=== PATIENT | female | born 1970 | race Caucasian/White ===

== ENCOUNTER 2017-02-08 09:28 | Emergency (ER) | payer BC ==
[2017-02-08 10:24] VITALS: BP 127/79
--- NOTE | 2017-02-08 10:34 | UC ---
I, Oh,Soohyun, scribed for MohiniKiana plummer DO on 02/08/17 at 1005 . Cardiac HPI - HPI Summary HPI Summary: This 46 y/o female presents to [facility] for persistent CP since 1.5 weeks ago. CP is described as sharp and located in right "lung". Pt reports recent "chest cold " and initially dismissed CP. She decided to visit [facility] today when her CP became persistent. It is associated with SOB. She also reports fever a week ago , chest congestion, productive cough with brown sputum production, general myalgia, CHACON, and dizziness. Family member present at bedside reports syncope and lightheaded dizziness, where pt appeared to have slumped and become unresponsive. Negative rash or n/v/d. 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 Pt denies currently being on blood thinner. Per pt, she has defect that "my veins go kalyani-cross". She is current light everyday smoker. - History of Current Complaint Chief Complaint: UCRespiratory Stated Complaint: CHEST PAIN CONGESTION Time Seen by Provider: 02/08/17 09:52 Hx Obtained From: Patient, Medical Records Onset/Duration: Sudden Onset, Lasting Weeks - 1.5 week, Still Present Timing: Constant Initial Severity: Mild Current Severity: Mild Chest Pain Location: Right Anterior, Right Lateral Character: Sharp/Stabbing Aggravating: Nothing Alleviating: Nothing Associated Signs & Symptoms: Positive: Chest Pain, Headaches, Dizziness, SOB, Syncope, Cough - productive with brown sputum. Negative: Numbness - Allergy/Home Medications Allergies/Adverse Reactions: Allergies Allergy/AdvReac Type Severity Reaction Status Date / Time Sulfa Drugs Allergy Intermediate Hives Verified 02/08/17 09:51 Home Medications: Home Medications NK [No Home Medications Reported] 02/08/17 [History Confirmed 02/08/17] PMH/Surg Hx/FS Hx/Imm Hx - Additional Past Medical History Additional PMH: h/o PE with rupture and RA Endocrine History Of: Denies: Diabetes, Thyroid Disease Cardiovascular History Of: Denies: Cardiac Disorders, Hypertension, Pacemaker/ICD Respiratory History Of: Denies: COPD, Asthma GI/ History Of: Denies: Ulcer - Surgical History Surgical History: Yes Surgery Procedure, Year, and Place: 2009 HYSTERECTOMY;LUNG -1987 (BLOOD CLOTS RUPTURED IN Rt SIDE) - Family History Known Family History: Negative: Hypertension, Diabetes - Social History Lives: With Family Alcohol Use: None Substance Use Type: None Smoking Status (MU): Light Every Day Tobacco Smoker Amount Used/How Often: 1/2 ppd Cessation Counseling: Patient Advised to Stop Review of Systems Constitutional: Fever - currently resolved Skin: Negative Eyes: Negative ENT: Negative Respiratory: Shortness Of Breath, Cough - productive with brown sputum productino Cardiovascular: Negative, Chest Pain Gastrointestinal: Negative Genitourinary: Negative Motor: Negative Neurovascular: Negative Musculoskeletal: Negative Neurological: Headache, Other - syncope per family member present at bedside. Positive lightheaded dizziness. Psychological: Negative All Other Systems Reviewed And Are Negative: Yes Physical Exam Triage Information Reviewed: Yes Appearance: Well-Appearing, Well-Nourished, Pain Distress - mild Vital Signs: Initial Vital Signs Temp 98.7 F 02/08/17 09:36 Pulse 80 02/08/17 09:36 Resp 20 02/08/17 09:36 BP 127/79 02/08/17 09:36 Pulse Ox 98 02/08/17 09:36 Vital Signs Reviewed: Yes Eye Exam: Normal Eyes: Positive: Conjunctiva Clear. Negative: Discharge ENT: Positive: Hearing grossly normal. Negative: Muffled/hoarse voice Neck exam: Normal Neck: Positive: Supple Respiratory: Positive: Lungs clear, Normal breath sounds, No respiratory distress, No accessory muscle use Cardiovascular: Positive: RRR, No Murmur, Other: - ttp at 8th-9th rib on rt Musculoskeletal: Positive: Other: - ttp at 8th-9th rib on rt Neurological: Positive: Alert, Muscle Tone Normal Psychological: Positive: Normal Response To Family, Age Appropriate Behavior Skin Exam: Normal, Other - warm, dry, color nml Diagnostics - EKG Cardiac Rate: NL - NSR with 77 bpm. Early repol in V3. - Differential Diagnoses - Chest Pain Differential Diagnosis/HQI/PQRI: Acute PR, ACS, Chest Wall, Lower Respiratory Infection, Pulmonary Edema, Other: - uri, rib dysfunction, pleuricy - Clinical Impression Provider Diagnoses: dyspnea, dizziness - Physician Notifications Discussed Patient Care With: Lesly Thrasher (ERP at [facility]) at 1014 AM Time Discussed With Above Provider: 10:14 Instructed by Provider To: Transfer - [facility] Discharge - Discharge Plan Condition: Stable Disposition: TRANS HIGHER LVL OF CARE FAC The documentation as recorded by the Jeremiah cisneros Soohyun accurately reflects the service I personally performed and the decisions made by , Kiana Rajan DO.
== END 2017-02-08 10:45 | disposition short-term general hospital (02) ==
LOC: UCEAST 09:28
DX: R06.00 Dyspnea, unspecified (principal); R42 Dizziness and giddiness; F17.210 Nicotine dependence, cigarettes, uncomplicated; Z88.2 Allergy status to sulfonamides; Z86.711 Personal history of pulmonary embolism
CPT/HCPCS: 93005; 99213; G0463

== ENCOUNTER 2017-02-08 11:13 | Emergency (ER) | payer BC ==
[2017-02-08] MEDS ORDERED: NS 0.9% 1000 ML* 1,000 ML IV ONE (12:38)
[2017-02-08 13:15] LABS: Hematocrit 42 % (35-47); Mean Corpuscular HGB Conc 33 g/dl (31-36); Mean Corpuscular Hemoglobin 33 pg (27-31); Mean Corpuscular Volume 99 fL (80-97); Mean Platelet Volume 8 um3 (7.4-10.4); Red Blood Count 4.27 10^6/ul (4.0-5.4); Red Cell Distribution Width 13 % (10.5-15); White Blood Count 8.5 10^3/ul (3.5-10.8)
[2017-02-08 13:37] LABS: ALT 8 U/L (7-52); AST 13 U/L (13-39); Albumin 4.2 g/dL (3.2-5.2); Alkaline Phosphatase 68 U/L (34-104); Anion Gap 6 mmol/L (2-11); BUN/Creatinine Ratio 16.7 (8-20); Blood Urea Nitrogen 13 mg/dL (6-24); C Reactive Protein < 1.00 mg/L (< 5.00); CO2 Carbon Dioxide 25 mmol/L (22-32); Calcium 9.6 mg/dL (8.6-10.3); Chloride 109 mmol/L (101-111); EGFR African American 101.4 (>60); EGFR Non-African American 78.8 (>60); Globulin 2.3 g/dL (2-4); Glucose 88 mg/dL (70-100); Lipase 32 U/L (11.0-82.0); Magnesium 2.2 mg/dL (1.9-2.7); Potassium 4.1 mmol/L (3.5-5.0); Sodium 140 mmol/L (133-145); Total Protein 6.5 g/dL (6.4-8.9)
[2017-02-08] MEDS ORDERED: Iohexol 350* (CONTRAST) 500 ML MDV IV ONE (13:51)
[2017-02-08 13:52] LABS: Urine Bilirubin Negative (Negative); Urine Glucose Negative (Negative); Urine Nitrite Negative (Negative)
--- NOTE | 2017-02-08 13:54 | RAD ---
INDICATION: ] Right upper quadrant pain COMPARISON: None TECHNIQUE: Longitudinal and transverse scans of the right upper quadrant were obtained. Doppler interrogation of the hepatic and portal venous system was performed. FINDINGS: Liver: The liver is normal in size and echogenicity. There is a 0.8 cm, not shadowing, right hepatic lobe echogenic focus which is likely an incidental hemangioma. The liver measures 13.4 cm in cephalocaudal dimension. Vessels: There is normal hepatic and portal venous flow. Bile ducts: There is no evidence of intrahepatic or extrahepatic ductal dilatation. The common duct measures 0.5 cm. Gallbladder: The sonographic appearance of the gallbladder is normal. There is no evidence of cholelithiasis, thickening of the gallbladder wall, or pericholecystic fluid. Pancreas: The visualized pancreas appears normal Right kidney: The right kidney is normal in size and echogenicity. There are no masses or calculi. There is no evidence of hydronephrosis. The right kidney measures 9.9 x 3.9 x 6.7 cm. IVC and aorta: The aorta and superior vena cava appear normal. Fluid: There is no ascites. Other: None. IMPRESSION: NORMAL GALLBLADDER. SUSPECT SUBCENTIMETER RIGHT HEPATIC LOBE HEMANGIOMA REPRESENTING AN INCIDENTAL FINDING.
--- NOTE | 2017-02-08 15:59 | RAD ---
INDICATION: RIGHT upper quadrant pain. Pleuritic chest pain. History of PE. Worsening pain for 1.5 weeks. Post hysterectomy. Previous lung surgery. COMPARISON: November 19, 2005 chest radiograph and February 08, 2017 RIGHT upper quadrant ultrasound. TECHNIQUE: Multidetector CT images were obtained from the lung apices to the ischial tuberosities with 100 mL Omnipaque 350 IV contrast. Oral contrast administered. CT pulmonary angiogram protocol. Multiplanar reformation including maximum intensity projection images of the thorax. CHEST REPORT: Postsurgical change of RIGHT upper lobectomy. Compensatory hyperexpansion of the RIGHT lower lobe. Minimal RIGHT upper lung zone predominant linear pleural-parenchymal scarring. No suspicious focal pulmonary lesions or alveolar consolidation. Negative for pleural effusions or pneumothorax. Upper normal bilateral hilar lymph nodes. Negative for lymphadenopathy. Negative for cardiomegaly or pericardial effusion. Normal diameter thoracic aorta. No filling defects are identified from the main to the subsegmental pulmonary arteries to indicate presence of a pulmonary embolism. Postsurgical defect at the RIGHT sixth rib posteriorly. No suspicious thoracic osseous lesions. CHEST IMPRESSION: No evidence for pulmonary embolism or other acute intrathoracic process. ABDOMEN PELVIS REPORT: Subtle 5 mm hypodensity noted at the central RIGHT hepatic lobe reference axial image 16 and coronal image 37 which likely corresponds with the hypoechoic sonographic lesion most consistent with a benign hemangioma. No additional abnormality of the liver. No CT abnormality of the gallbladder with normal variant fold at the fundus. Unremarkable pancreas. A few subcapsular splenic cysts are noted with dominant 1.2 cm cyst at the anterolateral margin. Negative for splenomegaly. Negative for CT abnormality of the upper GI, small bowel, infra cecal appendix anterior to the iliopsoas muscle, or colon. Negative for ascites, free air, hernias. 1.9 x 1.3 cm RIGHT adrenal nodule and probable 0.8 cm LEFT adrenal nodule are nonspecific based on density measurement. Unremarkable kidneys with symmetric nephrograms and pyelograms. Unremarkable ureters and urinary bladder. Post hysterectomy. No suspicious adnexal region lesions. Negative for lymphadenopathy. Mild atherosclerotic plaque of normal diameter abdominal aorta. Physiologic distention of the IVC. Sharply demarcated 0.7 cm maximum dimension subcortical osseous lesion at the RIGHT iliac bone posteriorly is most suspicious for a bone island. Negative for suspicious osseous lesions. ABDOMEN PELVIS IMPRESSION: 1. 0.5 cm hypodense lesion at the central RIGHT hepatic lobe is low suspicion based on small size and corresponding hypoechoic lesion on ultrasound most consistent with a benign hemangioma. 2. Normal appendix documented. 3. Small RIGHT larger than LEFT nonspecific adrenal nodules. Follow-up noncontrast CT or MRI adrenal mass protocol suggested for further characterization. 4. Post hysterectomy. 5. Mild atherosclerotic plaque. Negative for aneurysm of the abdominal aorta.
[2017-02-08 17:05] VITALS: BP 140/84
--- NOTE | 2017-02-08 17:45 | ED ---
Brendan Mitchell Adam, scribed for Susie Dunn MD on 02/08/17 at 1219 . HPI Chest Pain - HPI Summary HPI Summary: Pt is a 46 year old female presenting with CP. She describes it as severe sharp pain in her right side that feels "like a knife." It started 1.5 weeks ago and has been intermittent but growing worse. Movement aggravates the pain. The pain is a 6/10 now but when she sits up it is a 9/10. She has been taking ibuprofen for the pain. Pt denies any flank pain or pain with urination. PMHx of PE (not currently on blood-thinners) and RA (not on medication). Positive tobacco use. No FMHx of HTN, DM, or cardiac disease. - History of Current Complaint Chief Complaint: EDChestPainROMI Time Seen by Provider: 02/08/17 12:12 Hx Obtained From: Patient Onset/Duration: Started Weeks Ago, Atraumatic, Still Present Timing: Intermittent Initial Severity: Moderate Current Severity: Mild Pain Intensity: 6 Pain Scale Used: 0-10 Numeric Chest Pain Location: Discrete at: - Right side Chest Pain Radiates: Yes Chest Pain Radiates To:: Other - RUQ Character: Sharp/Stabbing - "Like a knife" Aggravating Factor(s): Movement Alleviating Factor(s): OTC Meds - Ibuprofen Associated Signs and Symptoms: Positive: Negative - Allergy/Home Medications Allergies/Adverse Reactions: Allergies Allergy/AdvReac Type Severity Reaction Status Date / Time Sulfa Drugs Allergy Intermediate Hives Verified 02/08/17 09:51 PMH/Surg Hx/FS Hx/Imm Hx Endocrine/Hematology History: Denies: Hx Diabetes, Hx Thyroid Disease Cardiovascular History: Denies: Hx Hypertension, Hx Pacemaker/ICD Respiratory History: Denies: Hx Asthma, Hx Chronic Obstructive Pulmonary Disease (COPD) GI History: Denies: Hx Ulcer Sensory History: Denies: Hx Hearing Aid Psychiatric History: Denies: Hx Panic Disorder - Surgical History Surgery Procedure, Year, and Place: 2008 HYSTERECTOMY;LUNG -1987 (BLOOD CLOTS RUPTURED IN Rt SIDE) Infectious Disease History: No Infectious Disease History: Denies: Hx Hepatitis, Hx Human Immunodeficiency Virus (HIV), History Other Infectious Disease, Traveled Outside the [place] in Last 30 Days - Family History Known Family History: Negative: Cardiac Disease, Hypertension, Diabetes - Social History Occupation: Employed Full-time Lives: With Family - Alcohol Use: None Hx Substance Use: No Substance Use Type: Reports: None Hx Tobacco Use: Yes Smoking Status (MU): Light Every Day Tobacco Smoker Amount Used/How Often: 1/2 ppd Review of Systems Negative: Fever Positive: Chest Pain - Right side Positive: Abdominal Pain - RUQ Negative: flank pain, pain All Other Systems Reviewed And Are Negative: Yes Physical Exam Triage Information Reviewed: Yes Vital Signs On Initial Exam: Initial Vitals Temp Pulse Resp BP Pulse Ox 98.2 F 86 18 114/75 98 02/08/17 11:30 02/08/17 11:30 02/08/17 11:30 02/08/17 11:30 02/08/17 11:30 Vital Signs Reviewed: Yes Appearance: Positive: Well-Appearing, No Pain Distress Skin: Positive: Warm, Skin Color Reflects Adequate Perfusion, Dry Eyes: Positive: EOMI, JOSIAH ENT: Positive: Pharynx normal, TMs normal Neck: Positive: Supple, Nontender Respiratory/Lung Sounds: Positive: Clear to Auscultation, Breath Sounds Present. Negative: Rales, Rhonchi, Wheezes Cardiovascular: Positive: RRR. Negative: Murmur, Rub Abdomen Description: Positive: Nontender, Soft. Negative: Distended, Guarding Bowel Sounds: Positive: Present Musculoskeletal: Positive: Strength/ROM Intact. Negative: Edema Left, Edema Right Neurological: Positive: Sensory/Motor Intact, Alert, Oriented to Person Place, Time, CN Intact II-III Psychiatric: Positive: Affect/Mood Appropriate - [place] Coma Scale Coma Scale Total: 15 Diagnostics - Vital Signs Vital Signs Temp Pulse Resp BP Pulse Ox 02/08/17 11:57 76 02/08/17 11:30 98.2 F 86 18 114/75 98 - Laboratory Lab Results: Lab Results 02/08/17 02/08/17 02/08/17 Range/Units 13:01 13:01 13:01 WBC 8.5 (3.5-10.8) 10^3/ul RBC 4.27 (4.0-5.4) 10^6/ul Hgb 14.0 (12.0-16.0) g/dl Hct 42 (35-47) % MCV 99 H (80-97) fL MCH 33 H (27-31) pg MCHC 33 (31-36) g/dl RDW 13 (10.5-15) % Plt Count 217 (150-450) 10^3/ul MPV 8 (7.4-10.4) um3 Neut % (Auto) 59.0 (38-83) % Lymph % (Auto) 33.5 (25-47) % [place] % (Auto) 5.5 (1-9) % Eos % (Auto) 1.2 (0-6) % Baso % (Auto) 0.8 (0-2) % Absolute Neuts (auto) 5.0 (1.5-7.7) 10^3/ul Absolute Lymphs (auto) 2.8 (1.0-4.8) 10^3/ul Absolute Monos (auto) 0.5 (0-0.8) 10^3/ul Absolute Eos (auto) 0.1 (0-0.6) 10^3/ul Absolute Basos (auto) 0.1 (0-0.2) 10^3/ul Absolute Nucleated RBC 0.01 10^3/ul Nucleated RBC % 0.1 Sodium 140 (133-145) mmol/L Potassium 4.1 (3.5-5.0) mmol/L Chloride 109 (101-111) mmol/L Carbon Dioxide 25 (22-32) mmol/L Anion Gap 6 (2-11) mmol/L BUN 13 (6-24) mg/dL Creatinine 0.78 (0.51-0.95) mg/dL Est GFR ( Amer) 101.4 (>60) Est GFR (Non-Af Amer) 78.8 (>60) BUN/Creatinine Ratio 16.7 (8-20) Glucose 88 (70-100) mg/dL Lactic Acid 0.7 (0.5-2.0) mmol/L Calcium 9.6 (8.6-10.3) mg/dL Magnesium 2.2 (1.9-2.7) mg/dL Total Bilirubin 0.50 (0.2-1.0) mg/dL AST 13 (13-39) U/L ALT 8 (7-52) U/L Alkaline Phosphatase 68 (34-104) U/L C-Reactive Protein < 1.00 (< 5.00) mg/L Total Protein 6.5 (6.4-8.9) g/dL Albumin 4.2 (3.2-5.2) g/dL Globulin 2.3 (2-4) g/dL Albumin/Globulin Ratio 1.8 (1-3) Lipase 32 (11.0-82.0) U/L Beta HCG, Quant 3.99 mIU/mL Urine Color Urine Appearance Urine pH (5-9) Ur Specific [place] (1.010-1.030) Urine Protein (Negative) Urine Ketones (Negative) Urine Blood (Negative) Urine Nitrate (Negative) Urine Bilirubin (Negative) Urine Urobilinogen (Negative) Ur Leukocyte Esterase (Negative) Urine Glucose (Negative) 02/08/17 Range/Units 13:35 WBC (3.5-10.8) 10^3/ul RBC (4.0-5.4) 10^6/ul Hgb (12.0-16.0) g/dl Hct (35-47) % MCV (80-97) fL MCH (27-31) pg MCHC (31-36) g/dl RDW (10.5-15) % Plt Count (150-450) 10^3/ul MPV (7.4-10.4) um3 Neut % (Auto) (38-83) % Lymph % (Auto) (25-47) % Canadian % (Auto) (1-9) % Eos % (Auto) (0-6) % Baso % (Auto) (0-2) % Absolute Neuts (auto) (1.5-7.7) 10^3/ul Absolute Lymphs (auto) (1.0-4.8) 10^3/ul Absolute Monos (auto) (0-0.8) 10^3/ul Absolute Eos (auto) (0-0.6) 10^3/ul Absolute Basos (auto) (0-0.2) 10^3/ul Absolute Nucleated RBC 10^3/ul Nucleated RBC % Sodium (133-145) mmol/L Potassium (3.5-5.0) mmol/L Chloride (101-111) mmol/L Carbon Dioxide (22-32) mmol/L Anion Gap (2-11) mmol/L BUN (6-24) mg/dL Creatinine (0.51-0.95) mg/dL Est GFR ( Amer) (>60) Est GFR (Non-Af Amer) (>60) BUN/Creatinine Ratio (8-20) Glucose (70-100) mg/dL Lactic Acid (0.5-2.0) mmol/L Calcium (8.6-10.3) mg/dL Magnesium (1.9-2.7) mg/dL Total Bilirubin (0.2-1.0) mg/dL AST (13-39) U/L ALT (7-52) U/L Alkaline Phosphatase (34-104) U/L C-Reactive Protein (< 5.00) mg/L Total Protein (6.4-8.9) g/dL Albumin (3.2-5.2) g/dL Globulin (2-4) g/dL Albumin/Globulin Ratio (1-3) Lipase (11.0-82.0) U/L Beta HCG, Quant mIU/mL Urine Color Yellow Urine Appearance Clear Urine pH 7.0 (5-9) Ur Specific [place] 1.009 L (1.010-1.030) Urine Protein Negative (Negative) Urine Ketones Negative (Negative) Urine Blood Negative (Negative) Urine Nitrate Negative (Negative) Urine Bilirubin Negative (Negative) Urine Urobilinogen Negative (Negative) Ur Leukocyte Esterase Negative (Negative) Urine Glucose Negative (Negative) Result Diagrams: 02/08/17 13:01 02/08/17 13:01 Lab Statement: Any lab studies that have been ordered have been reviewed, and results considered in the medical decision making process. - CT C/A/P CT Interpretation Completed By: Radiologist - ABDOMEN PELVIS IMPRESSION: 1. 0.5 cm hypodense lesion at the central RIGHT hepatic lobe is low suspicion based on small size and corresponding hypoechoic lesion on ultrasound most consistent with a benign hemangioma. - EKG 12:07 Cardiac Rate: NL - 79 BPM EKG Rhythm: Sinus Rhythm - Normal - Additional Comments Diagnostic Additional Comments: Abdomen Ultrasound - IMPRESSION: NORMAL GALLBLADDER. SUSPECT SUBCENTIMETER RIGHT HEPATIC LOBE HEMANGIOMA REPRESENTING AN INCIDENTAL FINDING. Chest Pain Course/Dx - Course Course Of Treatment: 46 yo female with complicated history of ?PE in the past with right flank pain for several days, work up was done to rule out PE, kidney stone and gb disease all of which were negative. - Diagnoses Provider Diagnoses: Chest pain, Abdominal pain Discharge - Discharge Plan Condition: Stable Disposition: HOME Prescriptions: HYDROcodone/ACETAMIN 5-325 MG* [Lena 5-325 TAB*] 1 tab PO Q8H PRN #14 tab MDD 3 PRN Reason: Pain Patient Education Materials: Chest Pain (ED), Abdominal Pain (ED) Forms: *Work Release Referrals: Eleazar Da Silva MD [Primary Care Provider] - Additional Instructions: Follow up with Dr. Da Silva this week. The documentation as recorded by the Brendan cisneros Adam accurately reflects the service I personally performed and the decisions made by Shaun green Justine, MD.
== END 2017-02-08 17:03 | disposition home or self-care (01) ==
LOC: ED 11:13
DX: R10.11 Right upper quadrant pain (principal); R07.9 Chest pain, unspecified; F17.210 Nicotine dependence, cigarettes, uncomplicated
CPT/HCPCS: 36415; 71275; 74177; 76705; 80053; 81003; 83605; 83690; 83735; 84702; 85025; 86140; 93005; 99283; Q9967